=== PATIENT | male | born 1970 | race Caucasian/White ===

== ENCOUNTER → 2018-05-24 | Emergency (ER) | payer SELFPAY ==
[~2018-05-24] VITALS: Ht 177.8 cm; Wt 72.6 kg
[2018-05-24] VITALS (16 sets, daily range): BP systolic 106–128; BP diastolic 61–98
[~2018-05-24] MED LIST: DEPAKOTE250 MG PO; Haloperidol 5mg/ml Inj IM ONE; ZYPREXA2.5 MG ORAL
[2018-05-24 12:59] LABS: ANION GAP 12 mmol/L (5-15); BLOOD UREA NITROGEN 17 mg/dL (7-18); CALCIUM 9.3 MG/DL (8.5-10.1); CARBON DIOXIDE 28 MMOL/L (21-32); CHLORIDE 106 MMOL/L (98-107); POTASSIUM 4.5 MMOL/L (3.5-5.1); SODIUM 146 MMOL/L (136-145)
[2018-05-24 13:04] LABS: ALANINE AMINOTRANSFERASE 47 U/L (12-78); ALBUMIN 3.4 G/DL (3.4-5.0); ALBUMIN/GLOBULIN RATIO 0.7 (1.0-2.7); ALKALINE PHOSPHATASE 144 U/L (46-116); ASPARTATE AMINO TRANSFERASE 37 U/L (15-37); BILIRUBIN,TOTAL 0.2 MG/DL (0.2-1.0)
[2018-05-24 13:28] LABS: EOSINOPHILS % (AUTO) 3.5 % (0.0-3.0); HEMATOCRIT 37.8 % (42.0-52.0); HEMOGLOBIN 12.6 G/DL (14.2-18.0); LYMPHOCYTES % (AUTO) 21.8 % (20.0-45.0); MEAN CORPUSCULAR VOLUME 86 FL (80-99); NEUTROPHILS % (AUTO) 66.7 % (45.0-75.0); PLATELET COUNT 349 K/UL (150-450); RED BLOOD COUNT 4.39 M/UL (4.70-6.10); RED CELL DISTRIBUTION WIDTH 11.5 % (11.6-14.8); WHITE BLOOD COUNT 8.7 K/UL (4.8-10.8)
--- NOTE | 2018-05-24 13:29 | Emergency Room Report ---
History of Present Illness General Chief Complaint: Behavioral Complaint Source: EMS Present Illness HPI This patient brought in by police reportedly at restaurant, trespassing, and when police came he said "i want you to kill me." To me the patient doesn't talk in any helpful way. History limited due to clinical condition. EMR: none On 5149 prior to arrival Allergies: Coded Allergies: No Known Allergies (Unverified , 05/24/18) Nursing Documentation-H Past Medical History: No Stated History Review of Systems Constitutional: Reports: see HPI Respiratory: Reports: no symptoms Cardiovascular: Reports: no symptoms Gastrointestinal: Reports: no symptoms Musculoskeletal: Reports: no symptoms All Other Systems: limited Physical Exam Vital Signs Date Time Temp Pulse Resp B/P (MAP) Pulse Ox O2 Delivery O2 Flow Rate FiO2 05/24/18 11:23 110 18 98 Room Air Sp02 EP Interpretation: reviewed, normal General Appearance: normal inspection, well appearing, no apparent distress, alert, GCS 15, non-toxic, other - doesn't want to talk but alert and oriented Head: normocephalic, atraumatic Eyes: bilateral eye normal inspection, bilateral eye PERRL, bilateral eye EOMI ENT: normal ENT inspection, hearing grossly normal, normal pharynx, no angioedema, normal voice, moist mucus membranes Neck: normal inspection, full range of motion, supple, no meningismus, no bony tend Respiratory: normal inspection, lungs clear, normal breath sounds, no rhonchi, no respiratory distress, no retraction, no accessory muscle use, no wheezing Cardiovascular #1: normal inspection, regular rate, rhythm, no edema Gastrointestinal: normal inspection, normal bowel sounds, non tender, soft, no mass, non-distended Musculoskeletal: gait/station normal, normal range of motion Neurologic: normal inspection, alert, oriented x3, responsive, motor strength/ tone normal Psychiatric: other - can't evaluate, won't talk with me, but does not appear to be responding to internal stimuli Suicide Risk Assessment: Suicidal Ideation: No Had intent to initiate attempt: No Pt's plan for suicide attempt: No Has means to complete attempt: No Skin: normal inspection, normal color, no rash, warm/dry Medical Decision Making Diagnostic Impression: Primary Impression: Behavioral disorder ER Course During my time, pt. sleeping. There is no evidence of head injury and he was oriented enough to be alert and oriented x 3. No need for head CT. Will attempt to find psych bed for patient and have asked next MD to make final dispo. If the patient becomes more communicative and wants to leave, will have to consult Dr. Vo if available. PT. MEDICALLY CLEARED FOR TRANSFER FOR PSYCHIATRIC CARE. Last Vital Signs Date Time Temp Pulse Resp B/P (MAP) Pulse Ox O2 Delivery O2 Flow Rate FiO2 05/24/18 11:58 110 18 Room Air 05/24/18 11:41 98 Status: unchanged Disposition: XFER TO PSYCH HOSP/UNIT Patient Instructions: Self-Destructive Behavior Ubaldo Pal M.D. May 24, 2018 13:29
[2018-05-24 14:05] LABS: APPEARANCE,URINE CLEAR; BILIRUBIN, URINE NEGATIVE (NEGATIVE); GLUCOSE, URINE (UA) NEGATIVE (NEGATIVE); KETONES,URINE NEGATIVE (NEGATIVE); LEUKOCYTE ESTERASE ,URINE 1+ (NEGATIVE); NITRITE,URINE NEGATIVE (NEGATIVE); PH,URINE 6 (4.5-8.0); PROTEIN,URINE 2+ (NEGATIVE); UROBILINOGEN,URINE 1 MG/DL (0.0-1.0)
[2018-05-24 14:06] LABS: COLOR,URINE YELLOW
[2018-05-25 02:15] VITALS: BP 115/76
[2018-05-25 04:00] VITALS: BP 120/67
[2018-05-25 09:15] VITALS: BP 128/76
[2018-05-25 10:08] VITALS: BP 134/75
== END ==
LOC: EDBD 11:30 → EMR 12:25
DX: F91.9 Conduct disorder, unspecified (principal)
CPT/HCPCS: 36415; 80053; 80307; 81001; 85025; 96372; 99285; G0480; J1630; 80329